=== PATIENT | male | born 1950 | race Caucasian/White ===

== ENCOUNTER → 2023-03-07 | Outpatient (CLI) | payer MEDICARE, SELFPAY | END | disposition home or self-care (01) | LOC: LABSPEC 16:31 | PROVIDERS: PCP Family Medicine; Referring Provider Urology; Visit Provider Urology | DX: N21.0 Calculus in bladder (principal) | CPT/HCPCS: 82360 ==

== ENCOUNTER 2023-03-27 16:14 | Observation (INO) | payer MEDICARE, SELFPAY ==
[2023-03-21 10:56] LABS: Absolute Lymphocyte Count 1.38 X10^3/uL (0.83-4.51); Basophil# 0.03 X10^3/uL; Basophil% 0.5 % (0-1); Eosinophil# 0.25 X10^3/uL; Eosinophils% 3.9 % (0-5); Hematocrit 45.1 % (40-54); Hemoglobin 14.5 g/dL (13.0-16.5); Lymphocyte # 1.38 X10^3/ul (0.83-4.51); Lymphocyte % 21.7 % (19-41); Mean Corp Hgb Conc 32.2 g/dL (32-36); Mean Corpuscular Hgb 30.1 pg (27.0-32.0); Mean Corpuscular Volume 93.8 fL (80-94); Monocyte# 0.67 X10^3/uL; Monocyte% 10.5 % (0-10); NRBC Flagged by Analyzer 0 % (0-5); Neutrophil # 4.01 X10^3/uL (2.7-7.7); Neutrophil % 63.1 % (47-70); Platelet Count 255 K/mm3 (150-450); RBC Distribution Width CV 13.8 % (11.6-14.6); RBC Distribution Width SD 47.5 fl (35.1-43.9); Red Blood Count 4.81 M/mm3 (4.6-6.2); White Blood Count 6.4 K/mm3 (4.4-11.0)
[2023-03-21 11:21] LABS: Vitamin B12 934 pg/mL (211-911)
[2023-03-21 11:29] LABS: ALB/GLOB Ratio 1.2 RATIO (0.9-2.4); AST(SGOT) 17 U/L (15-37); Alanine Aminotransfer ALT/SGPT 25 U/L (16-61); Alkaline Phosphatase 74 U/L (45-117); Anion Gap 4 (5-15); BUN 17 mg/dL (7-18); BUN/Creat Ratio 20.5 RATIO (10-20); Calcium,Total 9.3 mg/dL (8.5-10.1); Chloride 107 mmol/L (98-107); Creatinine, Serum 0.83 mg/dL (0.70-1.30); EST Glomerular Filtration Rate 97 mL/min (>60); Est Glom Filt Rate - Afr Amer 117 mL/min (>60); Globulin 3.2 g/dL (2.2-4.2); Glucose 106 mg/dL (74-106); Potassium 3.9 mmol/L (3.5-5.1); Protein, Total 7.2 g/dL (6.4-8.2); Sodium Level 139 mmol/L (136-145)
--- NOTE | 2023-03-21 15:52 | EKG12_ITS ---
Test Reason : PRE-OP Blood Pressure : / mmHG Vent. Rate : 052 BPM Atrial Rate : 052 BPM P-R Int : 164 ms QRS Dur : 092 ms QT Int : 428 ms P-R-T Axes : 072 077 068 degrees QTc Int : 398 ms Sinus bradycardia Otherwise normal ECG No previous ECGs available Confirmed by JEFF ZENDEJAS, LEON ([id number]), editor news KYUNG BROOKE ([id number]) on 03/22/2023 7:03:28 AM Referred By: Royal Espinoza Confirmed By:DEBO AGUILAR MD
[2023-03-27] VITALS (9 sets, daily range): BP systolic 129–149; BP diastolic 70–98; PULSE 63–129; RESP 15–18; TEMP 36.2–37.1; O2SAT 96–100; BMI 24.6; BMI 28.9
[2023-03-27] MEDS: Lactated Ringers 1,000 ML 15 ML IV (09:50)
--- NOTE | 2023-03-27 11:05 | PROS_PTH ---
PATIENT: DARINEL PINTO LOC: MS3 U#:[id number] AGE/SX: 73/M ROOM: DE318 RE03/27/[address]: Dr. Royal Espinoza MD : 1950 BED: 1 DIS: 03/28/2023 SPEC #: [id number] RECD: 03/27/23 14:51 STATUS: JULITA BARTLETT #: [id number] COY: 03/27/23 11:[address]: Royal Espinoza DEPT: SURGICAL PATHOLOGY RECD BY: Winnie Coelho ENTERED: 03/28/23 08:24 SP TYPE: TURP OTHR DR: MD Dr. Cloin Mcdonald MD Tissues: Prostate, NOS Procedures: Surgery Specimen Level IV HEADER OPERATION: Transurethral resection of prostate with Olympus PRE-OP DIAGNOSIS: BPH with lower urinary tract symptoms, calculus in bladder, frequency of micturition TISSUE SUBMITTED: Prostate tissue and stone fragments MICROSCOPIC DIAGNOSIS Prostate tissue and stone fragments, transurethral resection: Benign prostatic hyperplasia, glandular and stromal type. Acute and chronic inflammation. Fragments of stone (gross only). GIOVANI:yulia 03/29/2023 MICROSCOPIC DESCRIPTION Slides are reviewed. GROSS DESCRIPTION Received is one container labeled with the patient's name and designated prostate tissue. The specimen consists of multiple irregular fragments of pink-stubbs, rubbery, soft tissue that in aggregate weigh 12.5 gm and measure in aggregate 5.0 x 5.0 x 1.5 cm. The specimen container contains multiple black calculi ranging in size from 0.1 to 0.2 cm. Staff Development Coordinator Rn portions are submitted in ten cassettes. / AM:yulia 03/28/2023 TC:5 CPT: 20180
[2023-03-27] MEDS: Cefazolin 2 GM in 0.9% Normal Saline (100mL Bag) 100 ML IV (11:48)
--- NOTE | 2023-03-27 13:18 | HP.PCM_ITS ---
HPI - General General Date of Service: 03/27/23 Chief Complaint: BPH with obstruction and UroLift and foreign bodies in the bladder and bladder stone large HPI Narrative DARINEL PINTO, is a 73 M who presents plan to proceed with a TURP laser bladder stones removal of UroLift clips [facility] Medical History (Updated 03/19/23 @ 10:41 by Yessenia Dillard) Cardiology follow-up encounter History of atrial fibrillation History of echocardiogram History of irregular heartbeat History of stress test Leg cramps Non-smoker Parkinson's disease Prostate disease Wears glasses Home Medications apixaban 5 mg tablet (Eliquis) 5 mg PO BID 03/19/23 [History Last Taken 03/04 06/25] cholecalciferol (vitamin D3) 125 mcg (5,000 unit) tablet (Vitamin D3) 125 mcg PO DAILY 03/19/23 [History Last Taken Unknown] coQ10 (ubiquinol) 100 mg capsule 200 mg PO DAILY 03/19/23 [History Last Taken Unknown] gjepnjktgdq-zcxrfjzlob-isy-calcium-155herb 375 mg-150 mg-125 mg tablet 1 tab PO DAILY 03/19/23 [History Last Taken Unknown] lisinopril 5 mg tablet 5 mg PO DAILY 03/19/23 [History Last Taken Unknown] vit C 250 mg-vit E 90 mg-zinc 40 mg-copper 1 qb-ukpezp-jgzdcu capsule (PreserVision AREDS-2) 1 tab PO BID 03/19/23 [History Last Taken Unknown] vitamin F24-fjucyxuig factor 110 mg-0.5 mg capsule 1 cap PO DAILY 03/19/23 [History Last Taken Unknown] ciprofloxacin HCl 500 mg tablet (Cipro) 500 mg PO BID #14 tabs 03/27/23 [Rx Last Taken Unknown] Allergy/AdvReac Type Severity Reaction Status Date / Time No Known Allergies Allergy Verified 03/27/23 09:33 Surgical History (Updated 03/19/23 @ 10:41 by Yessenia Dillard) History of cystoscopy (~2022) History of hernia repair (~1956) History of repair of ACL History of vasectomy (~1981) Social History Smoking Status: Never smoker Vital Signs Vital Signs Vital Signs: 03/27/23 09:45 03/27/23 09:45 Temperature 98.5 F Temperature Source Temporal Pulse Rate 63 Respiratory Rate 18 Respiratory Pattern Normal Blood Pressure 149/70 H Blood Pressure Mean 96 Blood Pressure Source Monitor Blood Pressure Position Semi-Fowlers Blood Pressure Location Left Arm Pulse Ox 100 Oxygen Delivery Method Room Air Weight Weight: 78 kg Body Mass Index (BMI) 24.6 Results Lab / Micro Data 03/21/23 09:52 03/21/23 09:52
--- NOTE | 2023-03-27 13:18 | DCINST_ITS ---
Discharge Instructions Diet Discharge Diet: No restrictions Activity Discharge Activity: Return to Normal Activity and May Not Drive (while taking narcotic pain medications.) Dressing / Incision Call your doctor if you observe: Fever of 101 or Higher Follow Up Care Please Follow Up With: Royal Espinoza MD When: Call [phone] for an appointment Test Results: Test results from this visit will be discussed in further detail at your follow- up appointment, if applicable. Discharge Plan Admission Primary Reason for Your Visit: TURP and laser bladder stones Attending Provider: oRyal Espinoza Primary Care Provider: Kavin Ferrer Consulting Providers: Colin Lawrence Discharge Orders/Prescriptions Prescriptions: New ciprofloxacin HCl [Cipro] 500 mg tablet 500 mg PO BID Qty: 14 0RF Continued lisinopril 5 mg tablet 5 mg PO DAILY PreserVision AREDS-2 250-90-40-1 mg capsule 1 tab PO BID uhzukeiord-bbtwg-jab-magdaleno-115HC 375-150-125 mg tablet 1 tab PO DAILY cholecalciferol (vitamin D3) [Vitamin D3] 125 mcg (5,000 unit) tablet 125 mcg PO DAILY coQ10 (ubiquinol) 100 mg capsule 200 mg PO DAILY vitamin C08-jntagikrt factor 110-0.5 mg capsule 1 cap PO DAILY Held Eliquis 5 mg tablet 5 mg PO BID Hold Instructions: Resume on 04/10/23. Other Ambulatory Orders: 12 Lead EKG (Routine) Timeframe: [id number] Location: None Selected Ordered By: Dr. Colin Lawrence Referrals / Follow Up: Kavin Ferrer MD [Primary Care Provider] - Royal Espinoza MD [Med Staff - Active Staff] - Disposition Disposition (needs filled in before D/C Order can be placed): Home, Self Care
--- NOTE | 2023-03-27 13:18 | PCM.OPRPT ---
Report of Operation Date of Procedure: 03/27/23 Pre-Operative Diagnosis: BPH with obstruction and bladder stones and UroLift clips Post-Operative Diagnosis: The same Surgery/Procedure Performed:: Cystolitholapaxy and removal of large bladder stones and multiple UroLift clips foreign objects transurethral resection of prostate Description of Surgical Findings:: Patient was taken back to the operating room after smooth induction of general anesthesia he was placed in dorsolithotomy position. The penis testicles were prepped and draped in usual sterile fashion went into the bladder with a 26 Vietnamese continuous-flow Olympus bipolar resectoscope once inside the bladder identified very large obstructive prostate I could see the areas where the UroLift clips been placed several years ago but the tissue had grown over these and causing obstruction and inside the bladder there was a large stone greater than 3 cm in size I then used 1000 ?m laser fiber laser the stone little tiny pieces and on the pieces of then flushed out of the bladder I then switched over the resectoscope I resected the anterior part of the bladder at the 12:00 to the 1:00 and 11 o'clock position back to the verumontanum I then resected the right lobe of the prostate and then the left lobe the prostate as it came up across the UroLift clips these were also then removed one by one I removed a total of 4 clips that would be used on prior procedure. I could not remove the deep part of the clip I could still see the suture poking out through the mucosa and I did not get the deep part on all the clips but got the superficial part of the clips. If I would go after these Sang[place] it caused too much bleeding. I then resected the prostate nicely resected all the way open from a nice channel that a flow test had a wonderful open flow good good good sphincter coaptation the verumontanum was Intact the sphincter looked intact and had good open flow we cauterized extensively obtain hemostasis and then I placed a 22 Vietnamese catheter in the bladder and put on continuous irrigation the urine was clear patient's anesthetic was reversed taken back to PACU in good condition Surgeon: Royal Espinoza Type of Anesthesia: General Drains: [address]
[2023-03-27] MEDS: 0.9% Normal Saline (1000mL) 1,000 ML 125 ML IV (17:18)
[2023-03-27] MEDS: Lisinopril 5 MG Tablet PO (20:17)
[2023-03-27] MEDS: Docusate Sodium 100 MG Capsule 200 MG PO (20:18)
[2023-03-27] MEDS: Ciprofloxacin 400 MG/200 ML BAG 200 MG IV (22:35)
[2023-03-28] MEDS: 0.9% Normal Saline (1000mL) 1,000 ML 125 ML IV (01:41)
[2023-03-28 02:46] VITALS: BP 104/68; PULSE 53; RESP 18; TEMP 36.8; O2SAT 98
--- NOTE | 2023-03-28 07:12 | PCM.PN.GU ---
Subjective Subjective Status post transurethral resection of the prostate urine is fairly clear we can remove his Zamora catheter and patient is able to go home after he urinates. He will need to go home and hold his Eliquis this was explained to the patient no Stephen until I see him Objective Data Objective Data Vital Signs: Vital Signs Temp Pulse Resp BP Pulse Ox O2 Del Method 98.2 F 53 L 18 104/68 98 Room Air 03/28/23 02:46 03/28/23 02:46 03/28/23 02:46 03/28/23 02:46 03/28/23 02:46 03/28/23 02:46 Oxygen Delivery Method Room Air Weight: 93.979 kg Body Mass Index (BMI) 28.9 Intake & Output: Intake and Output for Last 24 Hours 03/26/23 03/27/23 03/28/23 23:59 23:59 23:59 Intake Total 970.42 / 970.42 995.83 / 995.83 Output Total 84686 / 83412 8150 / 8150 Balance -9729.58 / -9729.58 -7154.17 / -7154.17 Lab / Micro Data 03/21/23 09:52 03/21/23 09:52
[2023-03-28 07:50] VITALS: BP 135/72; PULSE 50; RESP 18; TEMP 36.4; O2SAT 100
[2023-03-28] MEDS: Ciprofloxacin 400 MG/200 ML BAG 200 MG IV (09:33)
[2023-03-28] MEDS: Docusate Sodium 100 MG Capsule 200 MG PO (09:34)
[2023-03-28] MEDS: Lisinopril 5 MG Tablet PO (09:38)
--- NOTE | 2023-03-28 10:08 | CASEMGMT ---
Social Work SW met with pt to discuss advance directives.? Pt confirms he has completed a living will and health care POA naming his Concepc[place] Sheldon.? Pt notified that documents are not on file at [facility] and SW requested they be brought in for scanning into the EMR.? FOX Landis
[2023-03-28 11:00] VITALS: BP 126/75; PULSE 59; RESP 18; TEMP 36.5; O2SAT 99
== END 2023-03-28 11:15 | disposition home or self-care (01) ==
LOC: SDC 16:23 → MS3 16:23
PROVIDERS: Admitting Provider Urology; PCP Family Medicine; Referring Provider Urology; Visit Provider Urology
PROC: (CPT 52318; principal; 2023-03-27 10:55)
DX: N21.0 Calculus in bladder (principal); I48.91 Unspecified atrial fibrillation; N40.1 Benign prostatic hyperplasia with lower urinary tract symptoms; Z79.01 Long term (current) use of anticoagulants; N13.8 Other obstructive and reflux uropathy; R39.14 Feeling of incomplete bladder emptying; R35.0 Frequency of micturition; R35.1 Nocturia; G20.A1 Parkinson's disease without dyskinesia, without mention of fluctuations; Z79.899 Other long term (current) drug therapy
CPT/HCPCS: 52318; 52601; 00910; 36415; 80053; 82607; 85025; 88305; 93005; 94668; 96361; 96365; 96366; 99221; 99252; J7030; J7120; G0378; G0463; J0744; J2405